=== PATIENT | female | born 1980 ===

== ENCOUNTER 2018-10-10 11:54 | Inpatient (IN) | payer OTHER ==
[~2018-10-10] VITALS: Ht 160 cm; Wt 176.0 kg
[~2018-10-10 11:54] MED LIST: AZIT500 PO; HYDACE5 PO; NAPR550 PO; PROCODE120 PO
[2018-10-11 06:01] LABS: BASOPHILS ABSOLUTE AUTO 0.03 K/mm3 (0.00-0.23); BASOPHILS PERCENT AUTO 0 % (0-2); EOSINOPHILS ABSOLUTE AUTO 0.02 K/mm3 (0.00-0.68); EOSINOPHILS PERCENT AUTO 0 % (0-6); Hemoglobin 10.1 g/dL (11.5-16.0); IMMATURE GRAN ABSOLUTE AUTO 0.06 K/mm3 (0.00-0.10); IMMATURE GRAN PERCENT AUTO 0 % (0-1); LYMPHOCYTES ABSOLUTE AUTO 1.67 K/mm3 (0.84-5.20); LYMPHOCYTES PERCENT AUTO 12 % (21-46); MONOCYTES ABSOLUTE AUTO 1.06 K/mm3 (0.16-1.47); MONOCYTES PERCENT AUTO 8 % (4-13); Mean Corpuscular HGB 26.6 pg (26.0-34.0); Mean Corpuscular HGB Conc 31.6 g/dL (31.5-36.5); Mean Corpuscular Volume 84 fL (80-100); NEUTROPHILS PERCENT AUTO 79 % (41-73); Platelet Count 193 K/mm3 (150-400); RDW Coefficient Variation 22.3 % (11.7-14.2); RDW Standard Deviation 65.6 fL (35.1-46.3); White Blood Cell Count 13.54 K/mm3 (4.00-11.30)
[2018-10-11] MEDS ORDERED: Percocet 5-3251 EACH PO (17:15)
[2018-10-11] MEDS ORDERED: IBUP800 PO (17:15)
== END 2018-10-11 17:30 | disposition home or self-care (01) | DRG 807 ==
LOC: OBS 11:54 → BC 12:00
PROVIDERS: Nurse Practitioner Obstetrics & Gynecology
PROC: 10E0XZZ Delivery of Products of Conception, External Approach (ICD-10-PCS; principal; 2018-10-10)
DX: O99.824 Streptococcus B carrier state complicating childbirth (principal); Z37.0 Single live birth; O69.81X0 Labor and delivery complicated by cord around neck, without compression, not applicable or unspecified; Z3A.41 41 weeks gestation of pregnancy
CPT/HCPCS: 36415; 85025; 90707; J2590; J7120

== ENCOUNTER 2018-10-24 00:51 | Observation (INO) | payer OTHER ==
[~2018-10-24] VITALS: Ht 160 cm; Wt 68.6 kg
[~2018-10-24 00:51] MED LIST changes: +IBUP800 PO; +Percocet 5-3251 EACH PO
[2018-10-24 02:39] LABS: BASOPHILS ABSOLUTE AUTO 0.02 K/mm3 (0.00-0.23); BASOPHILS PERCENT AUTO 0 % (0-2); EOSINOPHILS ABSOLUTE AUTO 0.23 K/mm3 (0.00-0.68); EOSINOPHILS PERCENT AUTO 2 % (0-6); Hematocrit 39.7 % (33.0-51.0); Hemoglobin 12.3 g/dL (11.5-16.0); IMMATURE GRAN ABSOLUTE AUTO 0.04 K/mm3 (0.00-0.10); IMMATURE GRAN PERCENT AUTO 0 % (0-1); LYMPHOCYTES ABSOLUTE AUTO 1.56 K/mm3 (0.84-5.20); LYMPHOCYTES PERCENT AUTO 11 % (21-46); MONOCYTES ABSOLUTE AUTO 0.76 K/mm3 (0.16-1.47); MONOCYTES PERCENT AUTO 5 % (4-13); Mean Corpuscular HGB 26.7 pg (26.0-34.0); Mean Corpuscular Volume 86 fL (80-100); Mean Platelet Volume 9.7 fL (9.1-12.4); NEUTROPHILS ABSOLUTE AUTO 11.44 K/mm3 (1.96-9.15); NEUTROPHILS PERCENT AUTO 82 % (41-73); Platelet Count 231 K/mm3 (150-400); RDW Coefficient Variation 19.2 % (11.7-14.2); White Blood Cell Count 14.05 K/mm3 (4.00-11.30)
[2018-10-24 02:57] LABS: Alanine Aminotransfer (ALT/SGP 26 U/L (12-78); Albumin, Blood 2.9 g/dL (3.4-5.0); Albumin/Globulin Ratio 0.7 (0.8-1.8); Alk Phos 101 U/L (50-136); Anion Gap 9 mmol/L (6-16); Aspartate Aminotrans (AST/SGOT 16 U/L (12-37); Bilirubin, Total 0.4 mg/dL (0.1-1.0); Blood Urea Nitrogen 14 mg/dL (8-24); Bun/Creatinine Ratio 18.3 (12.0-20.0); CO2, Blood 21 mmol/L (21-32); Calcium, Blood 8.1 mg/dL (8.5-10.1); Chloride, Blood 110 mmol/L (98-108); Creatinine, Blood 0.76 mg/dL (0.40-1.00); Globulin, Blood 3.9 g/dL (2.2-4.0); Glomerular Filtration Rate >60 (60-); Glucose, Blood 92 mg/dL (70-99); Potassium, Blood 3.9 mmol/L (3.5-5.5); Sodium, Blood 140 mmol/L (136-145); Total Protein, Blood 6.8 g/dL (6.4-8.2)
--- NOTE | 2018-10-24 05:53 | NUR ---
ASSUMED CARE OF PT AT APPROXIMATELY 0515. PT ALERT AND ORIENTED. VS STABLE. PT STATES HER ABD PAIN HAS DECREASED TO A 5/10. PT ORIENTED TO ROOM. FAMILY AT BEDSIDE. WILL CONTINUE TO MONITOR AND REPORT TO ONCOMING RN. CALL LIGHT IN REACH.
--- NOTE | 2018-10-24 07:45 | NUR ---
IV START DONE PRIOR TO ARRIVAL ON UNIT AND NOT DOCUMENTED. DOCUMENTATION WAS DONE TO BE ABLE TO ASSESS IV PATENCY.
--- NOTE | 2018-10-24 17:25 | NUR ---
SHIFT SUMMARY PT RESTING IN ROOM WITH SPOUSE AND BABY. PT HAD NO ACUTE CHANGES T/O DAY. REMAINED AFEBRILE. PT TO BE OBS OVERNIGHT WITH Q6HR ABX AND DC IN THE AM. RESP IS EVEN UNLABORED. SKIN PWD. DENIES PAIN AT THIS TIME. CALL LIGHT IS IN REACH. PT REQUESTS FEW VISITS INTO ROOM POSSIBLE TO DECREASE EXPOSURE TO .
[2018-10-25 04:12] LABS: BASOPHILS ABSOLUTE AUTO 0.02 K/mm3 (0.00-0.23); BASOPHILS PERCENT AUTO 0 % (0-2); EOSINOPHILS ABSOLUTE AUTO 0.39 K/mm3 (0.00-0.68); EOSINOPHILS PERCENT AUTO 5 % (0-6); Hematocrit 37.9 % (33.0-51.0); Hemoglobin 11.6 g/dL (11.5-16.0); IMMATURE GRAN ABSOLUTE AUTO 0.02 K/mm3 (0.00-0.10); IMMATURE GRAN PERCENT AUTO 0 % (0-1); LYMPHOCYTES ABSOLUTE AUTO 1.87 K/mm3 (0.84-5.20); LYMPHOCYTES PERCENT AUTO 25 % (21-46); MONOCYTES ABSOLUTE AUTO 0.43 K/mm3 (0.16-1.47); MONOCYTES PERCENT AUTO 6 % (4-13); Mean Corpuscular HGB 26.4 pg (26.0-34.0); Mean Corpuscular HGB Conc 30.6 g/dL (31.5-36.5); Mean Corpuscular Volume 86 fL (80-100); NEUTROPHILS ABSOLUTE AUTO 4.79 K/mm3 (1.96-9.15); NEUTROPHILS PERCENT AUTO 64 % (41-73); Platelet Count 256 K/mm3 (150-400); RDW Coefficient Variation 19.1 % (11.7-14.2); RDW Standard Deviation 60.8 fL (35.1-46.3); Red Blood Cell Count 4.39 M/mm3 (3.80-5.20); White Blood Cell Count 7.52 K/mm3 (4.00-11.30)
--- NOTE | 2018-10-25 06:31 | NUR ---
SHIFT SUMMARY ALERT AND ORIENTED. VS STABLE. NO CHANGES SINCE INITIAL ASSESSMENT. PLAN TO DC THIS AM AFTER ABX INF. FAMILY AT BEDSIDE. WILL CONTINUE TO MONITOR AND REPORT TO ONCOMING RN. CALL LIGHT IN REACH.
--- NOTE | 2018-10-25 06:44 | NUR ---
PT REQUESTED REMOVAL OF IV. PT STATES SHE REFUSES A NEW IV TO BE PLACED SINCE SHE SHOULD DC THIS AM. NO IV ACCESS AT THIS TIME.
--- NOTE | 2018-10-25 08:00 | NUR ---
ASSUMED CARE PT RESTING IN ROOM WITH BABY. PT REPORTS FEELING MUCH BETTER EAGER TO GO HOME. PT REPORTS WILL REFUSE ANY MORE IV MEDICATIONS TODAY. REPORTS WANTS TO DC SOON POSSIBLE TODAY. PT EDUCATED THAT PROVIDER WILL BE BY THIS AM AND DC IS LIKELY. CALL LIGHT IN REACH.
[2018-10-25] MEDS ORDERED: ACET500 PO (09:01)
--- NOTE | 2018-10-25 10:00 | NUR ---
PT DC PT EDUCATED ON DC INSTRUCTIONS AND FOLLOW UP APPOINTMENTS. IV WAS REMOVED PRIOR TO SHIFT CHANGE. BELONGINGS GATHERED AND TAKEN WTH PT. NOTHNG LEFT IN ROOM. PT LEFT ON OWN FEET PER REQUEST.
== END 2018-10-25 10:00 | disposition home or self-care (01) ==
LOC: ER 00:51 → PCU 00:52
PROVIDERS: Emergency Medicine; Nurse Practitioner Obstetrics & Gynecology; ADMIT Obstetrics & Gynecology
DX: O86.12 Endometritis following delivery (principal); Z88.0 Allergy status to penicillin; Z88.1 Allergy status to other antibiotic agents
CPT/HCPCS: 36415; 80053; 83605; 85025; 87040; 96365; 96366; 99284-25; G0378; J0295

== ENCOUNTER 2020-01-02 12:05 | Emergency (ER) | payer OTHER ==
[~2020-01-02] VITALS: Ht 160 cm; Wt 70.3 kg
[~2020-01-02 12:05] MED LIST changes: +ACET500 PO
[2020-01-02 13:43] LABS: Influenza A Negative (NEGATIVE); Influenza B Negative (NEGATIVE)
== END 2020-01-02 14:39 | disposition home or self-care (01) ==
LOC: ER 12:05
PROVIDERS: Physician Assistant
DX: J98.9 Respiratory disorder, unspecified (principal); B97.89 Other viral agents as the cause of diseases classified elsewhere
CPT/HCPCS: 87081; 87430; 87804; 99283

== ENCOUNTER 2021-09-15 23:10 | Emergency (ER) | payer OTHER ==
[~2021-09-15] VITALS: Ht 160 cm; Wt 74.8 kg
== END 2021-09-16 00:30 | disposition home or self-care (01) ==
LOC: ER 23:10
DX: M79.651 Pain in right thigh (principal); Z88.0 Allergy status to penicillin; Z88.1 Allergy status to other antibiotic agents
CPT/HCPCS: 93971

== ENCOUNTER → 2022-06-10 | Outpatient (CLI) | payer OTHER | END | disposition home or self-care (01) | LOC: LAB 18:56 | DX: N39.0 Urinary tract infection, site not specified (principal) ==

== ENCOUNTER 2023-10-23 18:43 | Emergency (ER) | payer OTHER ==
[~2023-10-23] VITALS: Ht 162.6 cm; Wt 81.7 kg
[2023-10-23 19:04] VITALS: BP 133/99
[2023-10-23] MEDS ORDERED: Cephalexin500 M1 PO ×2 (20:18→20:25)
== END 2023-10-23 20:49 | disposition home or self-care (01) ==
LOC: ER 18:43
DX: L03.116 Cellulitis of left lower limb (principal); Z88.1 Allergy status to other antibiotic agents
CPT/HCPCS: 99282; A9270